=== PATIENT | female | born 1960 | race Caucasian/White ===

== ENCOUNTER 2020-11-22 11:06 | Emergency (ER) | payer OTHER ==
[2020-11-22] MEDS ORDERED: DICLOFENAC SODI75 MG PO (14:20)
[2020-11-22] MEDS ORDERED: ULTRA-LIGHT RO1 EACH XX (14:21)
== END 2020-11-22 14:50 | disposition home or self-care (01) ==
LOC: FER 11:06
DX: M54.42 Lumbago with sciatica, left side (principal); M54.41 Lumbago with sciatica, right side; I10 Essential (primary) hypertension; K21.9 Gastro-esophageal reflux disease without esophagitis; E07.9 Disorder of thyroid, unspecified; Z98.890 Other specified postprocedural states; Z88.5 Allergy status to narcotic agent; Z79.899 Other long term (current) drug therapy
CPT/HCPCS: 72131; J1885

== ENCOUNTER 2022-04-12 13:05 | Emergency (ER) | payer OTHER ==
[~2022-04-12] VITALS: Ht 160 cm; Wt 78.5 kg
[~2022-04-12 13:05] MED LIST: DICLOFENAC SODI75 MG PO; ULTRA-LIGHT RO1 EACH XX
[2022-04-12 13:35] LABS: BASOPHIL 0.6 % (0-2); EOSINOPHIL 1.2 % (0-5); HCT 47.8 % (37.0-47.0); HGB 15.6 g/dl (12.5-16.0); MCH 32.7 pg (25.0-31.0); MCHC 32.6 g/dL (32.0-36.0); MCV 100.2 fL (78.0-100.0); MONOCYTE 9.8 % (0-12); NEUTROPHIL 75.9 % (41-80); NRBC 0; PLT 241 K/uL (150-400); RBC 4.77 M/uL (4.20-5.40); RDW 13.1 % (11.5-14.0); WBC 8.1 K/uL (4.0-10.5)
[2022-04-12 13:46] LABS: ALBUMIN 3.6 g/dL (3.4-5.0); BILIRUBIN - TOTAL 0.4 mg/dL (0.2-1.0); BUN/CREAT RATIO (CALC) 12.2 RATIO; CREATININE 0.98 mg/dL (0.51-0.95); GLOBULIN (CALCULATION) 5.1 g/dL; POTASSIUM 4.6 mmol/L (3.5-5.1); TOTAL PROTEIN 8.7 g/dL (6.4-8.2)
[2022-04-12] MEDS ORDERED: NAPROXEN500 MG PO (14:50)
== END 2022-04-12 15:52 | disposition home or self-care (01) ==
LOC: FER 13:05
PROVIDERS: Emergency Medicine
DX: U07.1 COVID-19 (principal); E87.1 Hypo-osmolality and hyponatremia; I10 Essential (primary) hypertension; Z79.899 Other long term (current) drug therapy; Z28.310 Unvaccinated for COVID-19
CPT/HCPCS: 36415; 70450; 80053; 85025; J1885